=== PATIENT | female | born 1955 | race African-American/Black ===

== ENCOUNTER 2021-07-25 17:34 | Emergency (ER) | payer MEDICARE, OTHER ==
[~2021-07-25] VITALS: Ht 170.2 cm; Wt 90.7 kg
[~2021-07-25 17:34] MED LIST: GLIP5TAB13 PO; HYDR-4384 PO; METF-440 PO
[2021-07-25 18:06] VITALS: BP 131/86
--- NOTE | 2021-07-25 18:10 | NUR ---
TO ER BED 4 FOR MD OCHOA
--- NOTE | 2021-07-25 18:14 | NUR ---
URINE SPECIMEN COLLECTED AND SENT TO LAB.
[2021-07-25] MEDS ORDERED: HYDR453.3 TP (18:24)
[2021-07-25] MEDS ORDERED: NITR100C6 PO (18:24)
--- NOTE | 2021-07-25 18:38 | NUR ---
Patient discharged to home in stable condition. Written and verbal after care instructions given. Patient verbalizes understanding of instruction.
[2021-07-25 18:49] LABS: BILIRUBIN,URINE Negative (NEGATIVE); COLOR,URINE YELLOW (YELLOW); LEUKOCYTE ESTERASE ,URINE Negative (NEGATIVE); NITRITE, URINE Positive (NEGATIVE); PH,URINE 5.5 (5.0-8.0); PROTEIN,URINE Negative (NEGATIVE); UGLUCOSE >=1000 mg/dL (NEGATIVE); UROBILINOGEN,URINE 0.2 EU/dL (0.2)
[2021-07-25 18:52] LABS: BACTERIA,URINE 2+ /HPF (None Seen); SQUAMOUS EPITHELIAL CELL,UR Few /HPF (None Seen)
== END 2021-07-25 18:39 | disposition home or self-care (01) ==
LOC: ER 17:41
DX: N39.0 Urinary tract infection, site not specified (principal); E10.9 Type 1 diabetes mellitus without complications; Z88.0 Allergy status to penicillin; Z79.899 Other long term (current) drug therapy; Z79.84 Long term (current) use of oral hypoglycemic drugs
CPT/HCPCS: 81001; 87086-TC; 87186-TC